=== PATIENT | male | born 1985 | race Caucasian/White ===

== ENCOUNTER 2025-09-06 13:13 | Emergency (ER) | payer MEDICAID ==
[~2025-09-06] VITALS: Ht 172.7 cm; Wt 104.5 kg
[2025-09-06 13:14] VITALS: BP 157/95; PULSE 96; RESP 16; O2SAT 96
--- NOTE | 2025-09-06 13:51 | Physician Documentation ---
History of Present Illness ~ General Chief Complaint: Foot pain Stated Complaint: FOOT INJURY Time Seen by MD: 14:59 History of Present Illness Initial Comments 79-year-old male presents to the ED after injuring his foot via a chain saw proximally two weeks ago. States that he has been taking oral antibiotics using from his home country in [place]. He has not been evaluated for denies any fevers nausea and vomiting. There is some language barrier. However the wound does not appear to be currently draining it looks like he would have certainly benefit from sutures in the initial injury as the laceration remains open but appears as though it is healing. Medication Reconciliation Allergies: Coded Allergies: No Known Allergies (Unverified , 09/06/25) Review of Systems All Other Systems at this time: Reviewed and Negative ROS As stated above in the HPI, otherwise all systems are reviewed and negative. Physical Exam Physical Exam Vital Signs: Temperature: 98.1, Source: Temporal, Heart Rate: 96, Respiratory Rate: 16, BP: 157/95, Pulse Oximetry: 96, Weight: 104.500 Oxygen Flow Rate: 0 Physical Exam General: Alert, no apparent distress. Respiratory: Lungs clear, no respiratory distress. Cardiovascular: Regular rate and rhythm, no murmurs. Extremities: Normal range of motion, no deformity. right foot has and open laceration mid-healing, trace drainage, no erythema Neurologic: Oriented x4. Psychiatric: Normal mood and affect. Skin: Normal color, warm and dry. No edema, no ecchymosis. Progress Results/Orders Results/Orders Vital Signs 09/06/25 13:14 Temp 98.1 Pulse 96 Resp 16 B/P (MAP) 157/95 Pulse Ox 96 O2 Flow Rate 0 Medical Decision Making Additional information obtaine: N/A Findings This is a patient that he should have come in the day of his injury for suture repair. He does not present acutely ill shows no signs of toxicity. Can not confirm he was on the appropriate antibiotics as [place] came [place]. Placed him on on appropriate antibiotics and asked him follow up in the outpatient setting Nursing staff will irrigate the wound and provide him appropriate wound care supplies Differential Diagnosis n Departure Disposition: 01 HOME / SELF CARE / HOMELESS Impression: Primary Impression: Foot pain Discharge Instructions: Laceration Care, Adult, [id number] Referrals: NO PRIMARY CARE PROVIDER (PCP) Prescriptions Cephalexin*Monohydrate* (Keflex*) 500 Mg Capsule 1 CAP PO QID, #40 CAP Prov: EMILY FLETCHER [employer] WORKER 09/06/25 Education Educated: Patient Educated regarding: diagnosis Signature Scribe Signature: x Attestation: entered in error ZHANNA COLEMAN MD Sep 06, 2025 13:51 EMILY FLETCHER NP Sep 06, 2025 15:12
[2025-09-06] MEDS ORDERED: CEPH-585 PO (15:20)
[2025-09-06 15:49] VITALS: TEMP 98.1
== END 2025-09-06 15:50 | disposition home or self-care (01) ==
LOC: ER 13:14
DX: M79.671 Pain in right foot (principal)
CPT/HCPCS: 99283; A6446; A6449